=== PATIENT | male | born 1950 | race African-American/Black ===

== ENCOUNTER 2022-05-10 14:36 | Inpatient (IN) | payer MEDICARE, OTHER ==
[~2022-05-10] VITALS: Ht 177.8 cm; Wt 59.9 kg
[~2022-05-10 14:36] MED LIST: AMLO10TA80 MT; ASPI-1497 MT; ATOR40TA70 MT; BICA50TA7 PO; LOSA50TA41 MT; METO25TA6 MT
[2022-05-10] MEDS ORDERED: PIPERACILLIN/TAZ 3.375G PREMIX 50 ML IV ONE (15:45)
[2022-05-10] MEDS ORDERED: SODIUM CHLORIDE 0.9% 1000ML BAG (SEPSIS BOLUS) IV ONE (15:45)
[2022-05-10] MEDS ORDERED: VANCOMYCIN 1G PREMIX 200 ML IV ONE (15:45)
[2022-05-10 16:24] LABS: BG BASE EXCESS -0.9 mmol/L (-2.0-2.0); BG CARBOXYHEMOGLOBIN 0.2 % (0.5-1.5); BG DEOXYHEMOGLOBIN 0.2 % (0.0-5.0); BG FRACTION INSPIRED OXYGEN 100; BG HCO3 ACT 22.1 mmol/L (22.0-26.0); BG METHEMOGLOBIN 0.2 % (0.0-1.5); BG OXYGEN SATURATION 99.8 % (92.0-98.5); BG OXYHEMOGLOBIN 99.4 % (94.0-97.0); BG PCO2 31.8 mmHg (35.0-45.0); BG PH 7.459 (7.350-7.450); BG PO2 366.8 mmHg (75.0-100.0); BG SAMPLE SITE RIGHT RADIAL; BG TOTAL HEMOGLOBIN 13.3 g/dL (12.0-18.0); BG VENT MODE MASK - NRB
[2022-05-10 16:45] LABS: BASOPHILS % 0.8 % (0.0-2.0); EOSINOPHILS % 2.6 % (0.0-5.0); HEMOGLOBIN. 13.5 g/dL (14.0-18.0); LYMPHOCYTES % 33.8 % (20.0-50.0); MEAN CORPUSCULAR HEMOGLOBIN 31.5 pg (28.0-32.0); MEAN CORPUSCULAR VOLUME 95.3 fL (80.0-94.0); MEAN PLATELET VOLUME 8.9 fl (7.4-10.4); MONOCYTES % 11.3 % (2.0-8.0); NEUTROPHILS % 51.5 % (40.0-76.0); PLATELET 473 x1000/uL (130-400)
[2022-05-10 16:55] LABS: CHLORIDE 105 mEq/L (98-107)
[2022-05-10] MEDS ORDERED: OSELTAMIVIR 75MG CAPSULE NG ONE (17:15)
[2022-05-10] MEDS ORDERED: IPRATROPIUM/ALBUTEROL 0.5-3(2.5)MG/3ML NEB NEB PRN (19:15)
[2022-05-10] MEDS ORDERED: ACETAMINOPHEN 325MG TABLET PO PRN ×2 (19:15)
[2022-05-10] MEDS ORDERED: PIPERACILLIN/TAZ 3.375G PREMIX 50 ML IV SCH (19:15)
[2022-05-10] MEDS ORDERED: ZOLPIDEM TARTRATE 5MG TABLET PO PRN (19:15)
[2022-05-10] MEDS ORDERED: DOCUSATE SODIUM 100MG CAPSULE PO PRN (19:15)
[2022-05-10] MEDS ORDERED: MAGNESIUM/ALUMINUM HYDROXIDE/SIMETHICONE 30ML UDC PO PRN (19:15)
[2022-05-10] MEDS ORDERED: NITROGLYCERIN 0.4MG TABLET SL SL PRN (19:15)
[2022-05-10] MEDS ORDERED: KETOROLAC 15MG/ML VIAL IV PRN (19:15)
[2022-05-10] MEDS ORDERED: CLONIDINE 0.1MG TABLET PO PRN (19:15)
[2022-05-10] MEDS ORDERED: ONDANSETRON HCL 4MG/2ML INJ IV PRN (19:15)
[2022-05-10 19:31] LABS: D-DIMER 3.13 mg/L FEU (<0.50); PARTIAL THROMBOPLASTIN TIME 27.9 sec (23.4-31.0); PROTHROMBIN TIME 10.9 sec (9.6-11.0)
[2022-05-10 19:40] LABS: T4 FREE 1.33 ng/dL (0.76-1.46)
[2022-05-10 20:03] LABS: FOLIC ACID (FOLATE) SERUM >20 ng/mL ng/mL (>5.38); VITAMIN B12 SERUM 1424 pg/mL (211-911)
[2022-05-10 22:00] VITALS: BP 113/75
[2022-05-10] MEDS: ASCORBIC ACID 500 MG TABLET PO SCH (23:48)
[2022-05-10] MEDS: FAMOTIDINE 20MG TABLET PO SCH (23:48)
[2022-05-11] VITALS (8 sets, daily range): BP systolic 106–129; BP diastolic 67–83
[2022-05-11] MEDS: PIPERACILLIN/TAZOBACTAM 3.375G in DEXT 5% WATER 50ML IV SCH ×4 (00:10→22:00)
[2022-05-11 00:21] LABS: CREATINE KINASE MB FRACTION 2.3 ng/mL (0.5-3.6)
[2022-05-11] MEDS ORDERED: METHYLPREDNISOLONE SOD SUCC 125 MG/2 ML VIAL IV NR (01:30)
[2022-05-11] MEDS ORDERED: AZITHROMYCIN 500MG/250ML 250 ML IV SCH (02:30)
[2022-05-11 03:38] LABS: CLARITY URINE CLEAR (CLEAR); COLOR URINE YELLOW (YELLOW); KETONES URINE NEGATIVE (NEGATIVE); LEUKOCYTE ESTERASE URINE TRACE (NEGATIVE); NITRITE URINE NEGATIVE (NEGATIVE); OCCULT BLOOD URINE NEGATIVE (NEGATIVE); PH URINE 6.5 (4.5-8.0); PROTEIN URINE NEGATIVE (NEGATIVE); SPECIFIC GRAVITY URINE 1.014 (1.005-1.030)
[2022-05-11 05:20] LABS: BASOPHILS % 1.2 % (0.0-2.0); EOSINOPHILS % 1.7 % (0.0-5.0); HEMATOCRIT. 36.7 % (42.0-52.0); HEMOGLOBIN. 12.1 g/dL (14.0-18.0); LYMPHOCYTES % 8.8 % (20.0-50.0); MEAN CORPUSCULAR VOLUME 94.5 fL (80.0-94.0); MEAN PLATELET VOLUME 8.8 fl (7.4-10.4); NEUTROPHILS % 81.3 % (40.0-76.0); PLATELET 389 x1000/uL (130-400); RED BLOOD CELL COUNT 3.89 mill/uL (4.7-6.1); RED CELL DISTRIBUTION WIDTH 14.7 % (11.6-14.6)
[2022-05-11] MEDS: IPRATROPIUM/ALBUTEROL 0.5-3(2.5)MG/3ML NEB HHN SCH ×3 (05:25→12:00)
[2022-05-11 05:31] LABS: CHLORIDE 108 mEq/L (98-107)
[2022-05-11 05:40] LABS: CREATINE KINASE 87 IU/L (39-308); CREATINE KINASE MB FRACTION 2.3 ng/mL (0.5-3.6); PHOSPHORUS 2.8 mg/dL (2.5-4.9)
[2022-05-11] MEDS ORDERED: VANCOMYCIN 500MG PREMIX 100 ML IV SCH (06:00)
[2022-05-11] MEDS: FERROUS SULFATE 325MG TABLET PO SCH ×3 (06:22→16:47)
[2022-05-11] MEDS: AMLODIPINE 5MG TABLET PO SCH (09:34)
[2022-05-11] MEDS: ZINC SULFATE 220 MG ( 50 ) CAPSULE PO SCH (09:34)
[2022-05-11] MEDS: ASPIRIN 81MG TABLET PO SCH (09:34)
[2022-05-11] MEDS: LEVOTHYROXINE SODIUM 50MCG TABLET GT SCH (09:34)
[2022-05-11] MEDS: FAMOTIDINE 20MG TABLET PO SCH ×2 (09:34→21:24)
[2022-05-11] MEDS: ASCORBIC ACID 500 MG TABLET PO SCH ×2 (09:35→21:24)
[2022-05-11] MEDS: ENOXAPARIN 30MG/0.3ML SYR SUBCUT SCH (09:36)
[2022-05-11] MEDS: CLOPIDOGREL 75MG TABLET PO SCH (10:17)
[2022-05-11] MEDS ORDERED: IPRATROPIUM/ALBUTEROL 0.5-3(2.5)MG/3ML NEB HHN PRN (15:15)
[2022-05-11 15:19] LABS: BG CARBOXYHEMOGLOBIN 0.5 % (0.5-1.5); BG DEOXYHEMOGLOBIN 3.9 % (0.0-5.0); BG HCO3 ACT 24.5 mmol/L (22.0-26.0); BG METHEMOGLOBIN 0.3 % (0.0-1.5); BG OXYGEN SATURATION 96.1 % (92.0-98.5); BG OXYHEMOGLOBIN 95.3 % (94.0-97.0); BG PCO2 39.3 mmHg (35.0-45.0); BG PH 7.412 (7.350-7.450); BG PO2 83.6 mmHg (75.0-100.0); BG SAMPLE SITE RIGHT RADIAL; BG TOTAL HEMOGLOBIN 13.5 g/dL (12.0-18.0); BG VENT MODE ROOM AIR
[2022-05-11] MEDS: VANCOMYCIN 500MG PREMIX 100 ML IV SCH (16:46)
[2022-05-11] MEDS ORDERED: ALBUTEROL (0.083%) 2.5MG/3ML NEB HHN PRN (21:00)
[2022-05-11] MEDS ORDERED: IPRATROPIUM BROMIDE (0.02%) 0.5MG/2.5ML NEB HHN PRN (21:00)
[2022-05-11] MEDS: ATORVASTATIN CALCIUM 40MG TABLET PO SCH (21:24)
[2022-05-11] MEDS: BUDESONIDE 0.5MG/2ML NEB HHN SCH (21:29)
[2022-05-11] MEDS: IPRATROPIUM BROMIDE (0.02%) 0.5MG/2.5ML NEB HHN SCH (21:31)
[2022-05-11] MEDS: ALBUTEROL (0.083%) 2.5MG/3ML NEB HHN SCH (21:31)
[2022-05-11] MEDS ORDERED: IPRATROPIUM/ALBUTEROL 0.5-3(2.5)MG/3ML NEB HHN SCH (22:00)
[2022-05-12] VITALS: BP 121/66
[2022-05-12] MEDS ORDERED: AZITHROMYCIN 500MG in DEXTROSE 5% WATER 250ML IV SCH (01:00)
[2022-05-12 04:00] VITALS: BP 103/72
[2022-05-12] MEDS: PIPERACILLIN/TAZOBACTAM 3.375G in DEXT 5% WATER 50ML IV SCH ×3 (05:13→22:39)
[2022-05-12] MEDS: VANCOMYCIN 500MG PREMIX 100 ML IV SCH ×2 (05:14→17:29)
[2022-05-12 08:00] VITALS: BP 106/66
[2022-05-12] MEDS: FERROUS SULFATE 325MG TABLET PO SCH ×3 (08:37→17:25)
[2022-05-12] MEDS: GUAIFENESIN 200MG/10ML SUGAR FREE UDC PO PRN (08:37)
[2022-05-12] MEDS: ASPIRIN 81MG TABLET PO SCH (08:37)
[2022-05-12] MEDS: LEVOTHYROXINE SODIUM 50MCG TABLET GT SCH (08:37)
[2022-05-12] MEDS: ENOXAPARIN 30MG/0.3ML SYR SUBCUT SCH (08:37)
[2022-05-12] MEDS: FAMOTIDINE 20MG TABLET PO SCH ×2 (08:38→21:13)
[2022-05-12] MEDS: ASCORBIC ACID 500 MG TABLET PO SCH ×2 (08:38→21:13)
[2022-05-12] MEDS: ZINC SULFATE 220 MG ( 50 ) CAPSULE PO SCH (08:38)
[2022-05-12] MEDS: CLOPIDOGREL 75MG TABLET PO SCH (08:38)
[2022-05-12] MEDS: AMLODIPINE 5MG TABLET PO SCH (09:00)
[2022-05-12] MEDS: IPRATROPIUM BROMIDE (0.02%) 0.5MG/2.5ML NEB HHN SCH ×3 (10:17→23:32)
[2022-05-12] MEDS: BUDESONIDE 0.5MG/2ML NEB HHN SCH ×2 (10:17→23:32)
[2022-05-12] MEDS: ALBUTEROL (0.083%) 2.5MG/3ML NEB HHN SCH ×3 (10:17→23:32)
[2022-05-12 12:00] VITALS: BP 103/63
[2022-05-12] MEDS: KETOROLAC 15MG/ML VIAL IV PRN (15:23)
[2022-05-12 16:00] VITALS: BP 122/72
[2022-05-12] MEDS: AZITHROMYCIN 500 MG TABLET PO SCH (21:13)
[2022-05-12] MEDS: ATORVASTATIN CALCIUM 40MG TABLET PO SCH (21:13)
[2022-05-12] MEDS ORDERED: IOHEXOL-350 100 ML BOTTLE ONE (22:48)
[2022-05-13] VITALS: BP 134/77
[2022-05-13 04:00] VITALS: BP 109/63
[2022-05-13] MEDS: VANCOMYCIN 500MG PREMIX 100 ML IV SCH ×2 (05:57→17:58)
[2022-05-13] MEDS: PIPERACILLIN/TAZOBACTAM 3.375G in DEXT 5% WATER 50ML IV SCH ×3 (07:09→22:14)
[2022-05-13] MEDS: KETOROLAC 15MG/ML VIAL IV PRN (07:17)
[2022-05-13 07:54] VITALS: BP 141/80
[2022-05-13] MEDS: ALBUTEROL (0.083%) 2.5MG/3ML NEB HHN SCH ×2 (08:49→16:34)
[2022-05-13] MEDS: IPRATROPIUM BROMIDE (0.02%) 0.5MG/2.5ML NEB HHN SCH ×2 (08:49→16:34)
[2022-05-13] MEDS: BUDESONIDE 0.5MG/2ML NEB HHN SCH ×2 (08:49→20:05)
[2022-05-13] MEDS: ASCORBIC ACID 500 MG TABLET PO SCH ×2 (08:55→22:14)
[2022-05-13] MEDS: LEVOTHYROXINE SODIUM 50MCG TABLET GT SCH (08:56)
[2022-05-13] MEDS: AMLODIPINE 5MG TABLET PO SCH (08:56)
[2022-05-13] MEDS: CLOPIDOGREL 75MG TABLET PO SCH (08:57)
[2022-05-13] MEDS: FAMOTIDINE 20MG TABLET PO SCH ×2 (08:57→22:14)
[2022-05-13] MEDS: ENOXAPARIN 30MG/0.3ML SYR SUBCUT SCH (08:57)
[2022-05-13] MEDS: ASPIRIN 81MG TABLET PO SCH (08:57)
[2022-05-13] MEDS: FERROUS SULFATE 325MG TABLET PO SCH ×3 (08:57→17:58)
[2022-05-13] MEDS: GUAIFENESIN 200MG/10ML SUGAR FREE UDC PO PRN ×2 (08:57→12:57)
[2022-05-13] MEDS: ZINC SULFATE 220 MG ( 50 ) CAPSULE PO SCH (08:57)
[2022-05-13 12:08] VITALS: BP 104/66
[2022-05-13 15:30] VITALS: BP 131/84
[2022-05-13 20:00] VITALS: BP 113/69
[2022-05-13] MEDS: ATORVASTATIN CALCIUM 40MG TABLET PO SCH (22:14)
[2022-05-13] MEDS: AZITHROMYCIN 500 MG TABLET PO SCH (22:14)
[2022-05-14] VITALS (7 sets, daily range): BP systolic 104–133; BP diastolic 60–79
[2022-05-14] MEDS: IPRATROPIUM BROMIDE (0.02%) 0.5MG/2.5ML NEB HHN SCH ×3 (00:06→15:43)
[2022-05-14] MEDS: ALBUTEROL (0.083%) 2.5MG/3ML NEB HHN SCH ×3 (00:06→15:43)
[2022-05-14] MEDS: PIPERACILLIN/TAZOBACTAM 3.375G in DEXT 5% WATER 50ML IV SCH ×2 (06:42→14:25)
[2022-05-14] MEDS: VANCOMYCIN 500MG PREMIX 100 ML IV SCH ×2 (06:42→18:15)
[2022-05-14] MEDS: ENOXAPARIN 30MG/0.3ML SYR SUBCUT SCH (10:05)
[2022-05-14] MEDS: AMLODIPINE 5MG TABLET PO SCH (10:06)
[2022-05-14] MEDS: FAMOTIDINE 20MG TABLET PO SCH (10:06)
[2022-05-14] MEDS: ASPIRIN 81MG TABLET PO SCH (10:07)
[2022-05-14] MEDS: FERROUS SULFATE 325MG TABLET PO SCH ×3 (10:07→18:15)
[2022-05-14] MEDS: ZINC SULFATE 220 MG ( 50 ) CAPSULE PO SCH (10:07)
[2022-05-14] MEDS: ASCORBIC ACID 500 MG TABLET PO SCH (10:07)
[2022-05-14] MEDS: CLOPIDOGREL 75MG TABLET PO SCH (10:07)
[2022-05-14] MEDS: LEVOTHYROXINE SODIUM 50MCG TABLET GT SCH (10:07)
[2022-05-14] MEDS: BUDESONIDE 0.5MG/2ML NEB HHN SCH (15:43)
[2022-05-15] MEDS ORDERED: FAMOTIDINE 20MG TABLET PO SCH (09:00)
== END 2022-05-14 21:03 | DRG 871 ==
LOC: ER 14:36 → MICUNO 18:37 → EDBD 18:37 → EDBEDREQ 18:40 → EDBEDREQTM 18:40 → ENRESERV 19:06 → 7WST 05-11 13:41
PROVIDERS: ADMIT Internal Medicine; ATTEND Internal Medicine
DX: A41.9 Sepsis, unspecified organism (principal); J96.01 Acute respiratory failure with hypoxia; N18.6 End stage renal disease; R53.2 Functional quadriplegia; I12.0 Hypertensive chronic kidney disease with stage 5 chronic kidney disease or end stage renal disease; I69.354 Hemiplegia and hemiparesis following cerebral infarction affecting left non-dominant side; E03.9 Hypothyroidism, unspecified; E11.22 Type 2 diabetes mellitus with diabetic chronic kidney disease; E11.51 Type 2 diabetes mellitus with diabetic peripheral angiopathy without gangrene; E78.00 Pure hypercholesterolemia, unspecified; J44.9 Chronic obstructive pulmonary disease, unspecified; G40.909 Epilepsy, unspecified, not intractable, without status epilepticus; N40.0 Benign prostatic hyperplasia without lower urinary tract symptoms; S90.511A Abrasion, right ankle, initial encounter; L89.616 Pressure-induced deep tissue damage of right heel; R13.10 Dysphagia, unspecified; K21.9 Gastro-esophageal reflux disease without esophagitis; Z74.01 Bed confinement status; Z87.891 Personal history of nicotine dependence; Z79.4 Long term (current) use of insulin; Z93.1 Gastrostomy status; Z96.649 Presence of unspecified artificial hip joint; Z99.2 Dependence on renal dialysis; Z99.81 Dependence on supplemental oxygen; X58.XXXA Exposure to other specified factors, initial encounter; Y93.89 Activity, other specified; Y92.89 Other specified places as the place of occurrence of the external cause; Y99.8 Other external cause status; D63.8 Anemia in other chronic diseases classified elsewhere
CPT/HCPCS: 36415; 36600; 71045; 71275; 78580; 80053; 80061; 80202; 81003; 82375; 82550; 82553; 82607; 82746; 82805; 83036; 83540; 83550; 83605; 83735; 83880; 84100; 84145; 84439; 84443; 84484; 85025; 85379; 87426; 87804; 93005; 93306; 93970; 94640; 99291; C9803; J0456; J1650; J1885; J2543; J2930; J3370; J7030; J7060; J7626; Q9967; A4315